=== PATIENT | female | born 1955 | race Caucasian/White ===

== ENCOUNTER 2019-06-30 07:25 | Outpatient (CLI) | payer OTHER, MEDICARE, SELFPAY ==
--- NOTE | 2019-06-30 07:39 | MM_ITS ---
WS: [id number] Bilateral screening digital mammogram, 06/30/2019 Clinical Data: SCREENING Comparison: 05/26/2018, 05/04/2018, 04/10/2017, 03/01/2016, 02/22/2015, 10/08/2013. Findings: The breast parenchymal pattern shows fibroglandular tissue No spiculated masses or clustered calcific ations are seen. There are no secondary signs of carcinoma. The nodule on the lateral aspect of the a nterior right breast noted on the prior mammogram is no longer seen.. MM/[place] [id number] Impression: 1. Negative bilateral mammogram unchanged. 2. Recommend annual screening mammograms. BIRADS: 1-Negative FOLLOW UP: 1 Year Follow-up The CAD maturity checker was used.
== END 2019-06-30 07:26 | disposition home or self-care (01) ==
LOC: RADSHAW 07:30
PROVIDERS: Family Provider Family Medicine; PCP Family Medicine; Visit Provider Family Medicine
DX: Z12.31 Encounter for screening mammogram for malignant neoplasm of breast (principal)
CPT/HCPCS: 77067

== ENCOUNTER 2020-08-18 08:51 | Outpatient (CLI) | payer OTHER, MEDICARE, SELFPAY ==
--- NOTE | 2020-08-18 09:11 | MM_ITS ---
WS: [id number] Bilateral screening digital mammogram, 08/18/2020 Clinical Data: SCREENING Comparison: 06/30/2019, 05/26/2018, 05/04/2018, 04/10/2017, 03/01/2016, 02/22/2015, 10/08/2013, 05/08/2011 . Findings: The breast parenchymal pattern shows fat replacement. No spiculated masses or clustered calcification s are seen. There are no secondary signs of carcinoma. MM/[place] [id number] Impression: 1. Negative bilateral mammogram unchanged. 2. Recommend annual screening mammograms. BIRADS: 1-Negative FOLLOW UP: 1 Year Follow-up The CAD machine stoppage frequency checker was used.
== END 2020-08-18 08:52 | disposition home or self-care (01) ==
PROVIDERS: PCP Family Medicine; Visit Provider Family Medicine
DX: Z12.31 Encounter for screening mammogram for malignant neoplasm of breast (principal)
CPT/HCPCS: 77067

== ENCOUNTER 2021-10-10 08:16 | Outpatient (CLI) | payer MEDICARE, BC, SELFPAY ==
--- NOTE | 2021-10-10 08:25 | MM_ITS ---
WS: [id number] BILATERAL SCREENING DIGITAL BREAST TOMOSYNTHESIS MAMMOGRAM WITH CAD HISTORY: SCREENING COMPARISON: 08/18/2020 and 06/30/2019 Bilateral CC and MLO views with tomosynthesis and synthetic mammography submitted. Computer aided det ection analyzed. Breast composition: There are scattered areas of fibroglandular density. No suspicious masses, microc alcifications or architectural distortion. MM/[place] [id number] IMPRESSION: BI-RADS: 1-Negative FOLLOW UP: 1 Year Follow-up
== END 2021-10-10 08:17 | disposition home or self-care (01) ==
LOC: RAD 08:17
PROVIDERS: PCP Family Medicine; Visit Provider Family Medicine
DX: Z12.31 Encounter for screening mammogram for malignant neoplasm of breast (principal)
CPT/HCPCS: 77063; 77067

== ENCOUNTER 2022-12-10 08:30 | Outpatient (CLI) | payer MEDICARE, OTHER, SELFPAY ==
--- NOTE | 2022-12-10 08:38 | MM_ITS ---
WS: [id number] VIEWS: MLO and CC views both breasts. 3D digital tomosynthesis is also included in this exam. Comparison made with prior exam of 04/10/2017, 05/04/2018, 06/30/2019, 08/18/2020, 10/10/2021.. Findings: Questionable new 4 mm nodule seen in the inferior medial LEFT breast at anterior depth on the cc view and CC tomograms only. No new findings in the RIGHT breast. No suspicious calcification or enterprise solutions architect ural distortion in either breast. There are scattered areas of fibroglandular density noted. Regional ultrasound as well as compression magnification and spot imaging of the LEFT breast would be sugges margaret for further work-up. Impression: MM/[place] [id number] BI-RADS: 0-Incomplete: Need additional imaging evaluation FOLLOW-UP: See Report This mammogram was also analyzed by the Computer Aided Detection System R2 Imag e Well Tender.
== END 2022-12-10 08:31 | disposition home or self-care (01) ==
LOC: RAD 08:35 → MOBLMAM 08:37
PROVIDERS: PCP Family Medicine; Visit Provider Family Medicine
DX: Z12.31 Encounter for screening mammogram for malignant neoplasm of breast (principal)
CPT/HCPCS: 77063; 77067

== ENCOUNTER 2022-12-27 09:11 | Outpatient (CLI) | payer MEDICARE, OTHER, SELFPAY ==
--- NOTE | 2022-12-27 09:23 | MM_ITS ---
WS: [id number] VIEWS: Spot compression CC image as well as an MLO image of the LEFT breast to include tomography are obtained. Comparison made with prior exam of screening study of 12/10/2022. Findings: The previously suspicion nodule identified on the screening study of 12/10/2022 is not seen on the com pression spot images or the tomograms. No suspicious finding. The LEFT breast is almost entirely fatt y Impression: MM/[id number] BI-RADS: 2-Benign FOLLOW-UP: 1 Year Follow-up This mammogram was also analyzed by the Computer Aided Detection System R2 Imag e Manager Recovery.
== END 2022-12-27 09:12 | disposition home or self-care (01) ==
PROVIDERS: PCP Family Medicine; Visit Provider Family Medicine
DX: R92.8 Other abnormal and inconclusive findings on diagnostic imaging of breast (principal)
CPT/HCPCS: 77061; G0279

== ENCOUNTER 2024-11-11 11:27 | Outpatient (CLI) | payer MEDICARE, OTHER, SELFPAY ==
--- NOTE | 2024-11-11 | MM_ITS ---
WS: [id number] Bilateral screening 3D tomosynthesis digital mammogram, 11/11/2024 11:33 AM Clinical Data: ANNUAL SCREENING Comparison: 12/27/2022, 12/10/2022, 10/10/2021, 08/18/2020, 06/30/2019, 05/26/2018, 05/12/2018, 04/10/2017, 03/01/2016, 02/22/2015, 10/08/2013, 05/08/2011. Findings: No spiculated masses or clustered calcifications are seen. There are no secondary signs of carcinoma. Fiber glandular tissue is present. MM/MM scr BI tomosynthesis [id number] Impression: Negative bilateral mammogram unchanged. Recommend annual screening mammograms. BIRADS: 1 - Negative. FOLLOW UP: 1 Year Follow-up DENSITY: There are scattered areas of fibroglandular density. The CAD cash checker was used
== END 2024-11-11 11:28 | disposition home or self-care (01) ==
LOC: RAD 11:28
PROVIDERS: PCP Family Medicine; Visit Provider Family Medicine
DX: Z12.31 Encounter for screening mammogram for malignant neoplasm of breast (principal); R92.323 Mammographic fibroglandular density, bilateral breasts
CPT/HCPCS: 77063; 77067